=== PATIENT | female | born 1935 | race Caucasian/White ===

== ENCOUNTER → 2023-11-26 15:23 | Outpatient (REF) | payer MEDICARE, OTHER, SELFPAY ==
[2023-11-26 16:10] LABS: % Eosinophils 2.8 % (0-6); % Immature Granulocytes 0.3 % (0-0.5); % Lymphocytes 31.5 % (20.5-51.1); % Monocytes 6.1 % (1.7-9.3); % Neutrophils 58.3 % (42.2-75.2); Absolute Basophils 0.1 10^3/uL (0-0.2); Absolute Eosinophils 0.3 10^3/uL (0-0.7); Absolute Lymphocytes 2.8 10^3/uL (1.2-3.4); Absolute Monocytes 0.5 10^3/uL (0.1-0.6); Absolute Neutrophils 5.2 10^3/uL (1.4-6.5); Hematocrit 33.6 % (37.0-47.0); Hemoglobin 11.2 g/dL (12.0-16.0); Mean Corp Hgb Conc. 33.3 g/dL (33.0-37.0); Mean Corpuscular Hgb 31.2 pg (27.0-31.0); Mean Corpuscular Volume 93.6 fL (81.0-99.0); Mean Platelet Volume 9.3 fL (7.4-10.4); Nucleated Red Blood Cells % 0 %; Platelet Count 281 10^3/uL (130-400); Red Blood Cell Count 3.59 10^6/uL (4.20-5.40); Red Cell Dist. Width 13.9 % (11.5-14.5); White Blood Cell Count 8.9 10^3/uL (4.8-10.8)
[2023-11-26 16:35] LABS: ALT (SGPT) 25 U/L (0-35); AST (SGOT) 26 U/L (14-36); Albumin 3.8 g/dl (3.5-5.0); Alkaline Phosphatase 78 U/L (38-126); Blood Urea Nitrogen 28 mg/dl (7-17); Calcium 9.8 mg/dl (8.4-10.2); Carbon Dioxide 27 mmol/L (22-30); Chloride 98 mmol/L (98-107); Glucose 127 mg/dl (70-99); Magnesium 2.1 mg/dl (1.6-2.3); Potassium 4.7 mmol/L (3.5-5.1); Sodium 136 mmol/L (135-145); Total Bilirubin 0.4 mg/dl (0.2-1.3); Total Protein 6.5 g/dl (6.3-8.2); eGFR 23.73
== END ==
LOC: REG 15:23
PROVIDERS: ATTENDING PHYSICIAN Nurse Practitioner; FAMILY PHYSICIAN Family Medicine
DX: I48.0 Paroxysmal atrial fibrillation (principal); R42 Dizziness and giddiness; I10 Essential (primary) hypertension
CPT/HCPCS: 36415; 80053; 83735; 85025

== ENCOUNTER → 2023-12-02 10:30 | Outpatient (REF) | payer MEDICARE, OTHER, SELFPAY ==
[2023-12-02 11:22] LABS: Blood Urea Nitrogen 18 mg/dl (7-17); Carbon Dioxide 29 mmol/L (22-30); Chloride 98 mmol/L (98-107); Glucose 108 mg/dl (70-99); Potassium 4.5 mmol/L (3.5-5.1); Sodium 137 mmol/L (135-145); eGFR 43.81
== END ==
LOC: REG 10:30
PROVIDERS: ATTENDING PHYSICIAN Internal Medicine Cardiovascular Disease; FAMILY PHYSICIAN Family Medicine
DX: I10 Essential (primary) hypertension (principal); N28.9 Disorder of kidney and ureter, unspecified
CPT/HCPCS: 36415; 80048

== ENCOUNTER → 2024-01-27 12:54 | Outpatient (REF) | payer MEDICARE, OTHER, SELFPAY | LOC: EMG 12:54 | PROVIDERS: ATTENDING PHYSICIAN Psychiatry & Neurology Neurology; FAMILY PHYSICIAN Family Medicine | DX: M54.17 Radiculopathy, lumbosacral region (principal); R20.0 Anesthesia of skin | CPT/HCPCS: 95886; 95911 ==

== ENCOUNTER → 2024-02-05 13:48 | Outpatient (REF) | payer MEDICARE, OTHER, SELFPAY | LOC: MRI 3T 13:48 | PROVIDERS: ATTENDING PHYSICIAN Psychiatry & Neurology Neurology; FAMILY PHYSICIAN Family Medicine | DX: M54.2 Cervicalgia (principal); M54.12 Radiculopathy, cervical region | CPT/HCPCS: 72141 ==

== ENCOUNTER → 2024-02-18 13:23 | Outpatient (REF) | payer MEDICARE, OTHER, SELFPAY ==
[2024-02-18 15:07] LABS: ALT (SGPT) 18 U/L (0-35); AST (SGOT) 25 U/L (14-36); Albumin 4.3 g/dl (3.5-5.0); Alkaline Phosphatase 80 U/L (38-126); Direct Bilirubin 0.3 mg/dl (0.0-0.4); Total Bilirubin 0.3 mg/dl (0.2-1.3)
[2024-02-18 15:36] LABS: TSH Reflex To Free T4 3.42 uIU/ml (0.47-4.68)
== END ==
LOC: REG 13:23
PROVIDERS: ATTENDING PHYSICIAN Internal Medicine Cardiovascular Disease; FAMILY PHYSICIAN Family Medicine
DX: I48.0 Paroxysmal atrial fibrillation (principal); E78.2 Mixed hyperlipidemia; I10 Essential (primary) hypertension; N17.9 Acute kidney failure, unspecified; Z79.899 Other long term (current) drug therapy
CPT/HCPCS: 36415; 80076; 84443

== ENCOUNTER → 2024-02-29 10:02 | Outpatient (REF) | payer MEDICARE, OTHER, SELFPAY | LOC: WDC 10:02 | PROVIDERS: ATTENDING PHYSICIAN Nurse Practitioner Adult Health; FAMILY PHYSICIAN Family Medicine | DX: N63.10 Unspecified lump in the right breast, unspecified quadrant (principal); N63.14 Unspecified lump in the right breast, lower inner quadrant | CPT/HCPCS: 76642; 77061; 77065 ==

== ENCOUNTER → 2024-03-15 15:20 | Outpatient (REF) | payer MEDICARE, OTHER, SELFPAY ==
[2024-03-15 16:55] LABS: Erythrocyte Sed Rate 22 mm/hour (0-20)
[2024-03-15 17:06] LABS: ALT (SGPT) 20 U/L (0-35); AST (SGOT) 25 U/L (14-36); Albumin 4.3 g/dl (3.5-5.0); Alkaline Phosphatase 81 U/L (38-126); Direct Bilirubin 0.3 mg/dl (0.0-0.4); Total Bilirubin 0.4 mg/dl (0.2-1.3); Total Protein 7.1 g/dl (6.3-8.2)
[2024-03-15 17:08] LABS: C-Reactive Protein < 5.00 mg/L (0.0-10.00)
[2024-03-15 17:24] LABS: Vitamin D, 25-OH*** 57.7 ng/mL (30-80)
[2024-03-15 17:40] LABS: IgA 214 mg/dl (70-400)
[2024-03-15 17:58] LABS: Hepatitis B Surface Antibody Negative; Hepatitis C Antibody Negative (Negative)
[2024-03-15 18:03] LABS: Hepatitis A Antibody, Total Positive (Negative)
[2024-03-15 18:13] LABS: Folate 15.5 ng/ml (2.76-20); Vitamin B12 > 1000 pg/ml (239-931)
[2024-03-16 09:36] LABS: Glycohemoglobin (HgbA1c) 5.6 % (4.0-5.6)
[2024-03-16 14:41] LABS: tTG IgA Antibody 4.4 EU/ml (0-19)
[2024-03-17 14:54] LABS: Rheumatoid Agglutinin Less Than 10 IU (<10 IU)
[2024-03-17 18:28] LABS: HLA-B27 Negative (Negative)
[2024-03-17 20:56] LABS: ANA, IgG Reflex to HEp-2 None Detected (None Detected)
[2024-03-18 00:20] LABS: Endomysial IgA Antibody Titer <1:10 (<1:10)
[2024-03-18 01:24] LABS: Homocysteine 9 umol/L (0-15)
== END ==
LOC: REG 15:20
PROVIDERS: ATTENDING PHYSICIAN Psychiatry & Neurology Neurology; FAMILY PHYSICIAN Family Medicine
DX: M93.1 Kienbock's disease of adults (principal); E13.42 Other specified diabetes mellitus with diabetic polyneuropathy; D51.0 Vitamin B12 deficiency anemia due to intrinsic factor deficiency; M45.0 Ankylosing spondylitis of multiple sites in spine; E72.11 Homocystinuria; D52.9 Folate deficiency anemia, unspecified; R94.6 Abnormal results of thyroid function studies; Z20.828 Contact with and (suspected) exposure to other viral communicable diseases; R79.82 Elevated C-reactive protein (CRP); R70.0 Elevated erythrocyte sedimentation rate; E55.9 Vitamin D deficiency, unspecified
CPT/HCPCS: 36415; 80076; 82306; 82607; 82746; 82784; 83036; 83090; 83516; 83921; 84443; 85652; 86038; 86140; 86231; 86235; 86430; 86618; 86706; 86708; 86803; 86812

== ENCOUNTER → 2024-05-11 16:57 | Outpatient (REF) | payer MEDICARE, OTHER, SELFPAY ==
[2024-05-11 17:17] LABS: Urine Albumin Negative (Neg - Trace); Urine Bilirubin Negative (Negative); Urine Character Clear (Clear); Urine Color Amber; Urine Glucose Negative (Negative); Urine Ketone Negative (Negative); Urine Leukocyte Negative (Negative); Urine Nitrite Negative (Negative); Urine Occult Blood Negative (Negative); Urine Specific Gravity 1.005 (<1.030); Urine Urobilinogen Negative (Neg - 1+)
== END ==
LOC: CLAB 16:57
PROVIDERS: ATTENDING PHYSICIAN Urology
DX: N39.0 Urinary tract infection, site not specified (principal)
CPT/HCPCS: 81003; 87086

== ENCOUNTER → 2024-06-02 16:35 | Outpatient (REF) | payer MEDICARE, OTHER, SELFPAY ==
[2024-06-02 17:56] LABS: Urine Albumin Trace (Neg - Trace); Urine Bilirubin Negative (Negative); Urine Character Clear (Clear); Urine Color Yellow; Urine Glucose Negative (Negative); Urine Ketone Negative (Negative); Urine Leukocyte 1+ (Negative); Urine Nitrite Negative (Negative); Urine Occult Blood 1+ (Negative); Urine Specific Gravity 1.015 (<1.030); Urine Urobilinogen Negative (Neg - 1+)
[2024-06-02 18:14] LABS: Urine Squamous Cell 26-30 /LPF (Few)
[2024-06-02 18:15] LABS: Urine Bacteria Moderate (Negative); Urine Mucus Moderate; Urine White Cell 16-20 /HPF (0-5)
== END ==
LOC: CLAB 16:35
PROVIDERS: ATTENDING PHYSICIAN Urology
DX: N39.0 Urinary tract infection, site not specified (principal)
CPT/HCPCS: 81003; 81015; 87086

== ENCOUNTER → 2024-09-01 14:33 | Outpatient (REF) | payer MEDICARE, OTHER, SELFPAY ==
[2024-09-01 16:40] LABS: Urine Albumin Trace (Neg - Trace); Urine Bilirubin Negative (Negative); Urine Character Clear (Clear); Urine Color Yellow; Urine Glucose Negative (Negative); Urine Ketone Negative (Negative); Urine Leukocyte 2+ (Negative); Urine Nitrite Negative (Negative); Urine Occult Blood 1+ (Negative); Urine Urobilinogen Negative (Neg - 1+)
[2024-09-01 16:50] LABS: Urine Squamous Cell 0-2 /LPF (Few)
[2024-09-01 16:51] LABS: Urine Bacteria Few (Negative); Urine White Cell 90-100 /HPF (0-5)
== END ==
LOC: REG 14:33
PROVIDERS: ATTENDING PHYSICIAN Obstetrics & Gynecology Female Pelvic Medicine and Reconstructive Surgery; FAMILY PHYSICIAN Family Medicine
DX: N39.0 Urinary tract infection, site not specified (principal)
CPT/HCPCS: 81003; 81015; 87077; 87086; 87186

== ENCOUNTER → 2024-09-14 13:01 | Outpatient (REF) | payer MEDICARE, OTHER, SELFPAY ==
[2024-09-14 13:43] LABS: % Basophils 1.1 % (0-2); % Eosinophils 2.3 % (0-6); % Immature Granulocytes 0.3 % (0-0.5); % Lymphocytes 21.4 % (20.5-51.1); % Monocytes 6.5 % (1.7-9.3); % Neutrophils 68.4 % (42.2-75.2); Absolute Basophils 0.1 10^3/uL (0-0.2); Absolute Eosinophils 0.2 10^3/uL (0-0.7); Absolute Lymphocytes 1.4 10^3/uL (1.2-3.4); Absolute Monocytes 0.4 10^3/uL (0.1-0.6); Absolute Neutrophils 4.5 10^3/uL (1.4-6.5); Hematocrit 36.7 % (37.0-47.0); Hemoglobin 12.1 g/dL (12.0-16.0); Mean Corpuscular Hgb 31.3 pg (27.0-31.0); Mean Corpuscular Volume 95.1 fL (81.0-99.0); Mean Platelet Volume 9.3 fL (7.4-10.4); Nucleated Red Blood Cells % 0 %; Platelet Count 206 10^3/uL (130-400); Red Blood Cell Count 3.86 10^6/uL (4.20-5.40); Red Cell Dist. Width 13.2 % (11.5-14.5); White Blood Cell Count 6.6 10^3/uL (4.8-10.8)
[2024-09-14 16:05] LABS: Blood Urea Nitrogen 19 mg/dl (7-17); Calcium 9.2 mg/dl (8.4-10.2); Carbon Dioxide 29 mmol/L (22-30); Chloride 101 mmol/L (98-107); Glucose 121 mg/dl (70-99); Potassium 4.5 mmol/L (3.5-5.1); Sodium 141 mmol/L (135-145); eGFR 39.55
== END ==
LOC: REG 13:01
PROVIDERS: ATTENDING PHYSICIAN Obstetrics & Gynecology Female Pelvic Medicine and Reconstructive Surgery; FAMILY PHYSICIAN Family Medicine
DX: N99.3 Prolapse of vaginal vault after hysterectomy (principal); Z01.812 Encounter for preprocedural laboratory examination; C34.10 Malignant neoplasm of upper lobe, unspecified bronchus or lung
CPT/HCPCS: 36415; 80048; 85025

== ENCOUNTER → 2024-12-06 12:59 | Outpatient (REF) | payer MEDICARE, OTHER, SELFPAY | LOC: HWRCS 12:59 | PROVIDERS: ATTENDING PHYSICIAN Internal Medicine Cardiovascular Disease; FAMILY PHYSICIAN Family Medicine | DX: I10 Essential (primary) hypertension (principal); R42 Dizziness and giddiness; R01.1 Cardiac murmur, unspecified | CPT/HCPCS: 93306 ==

== ENCOUNTER → 2024-12-25 10:06 | Outpatient (REF) | payer MEDICARE, OTHER, SELFPAY | LOC: MRI 3T 10:06 | PROVIDERS: ATTENDING PHYSICIAN Psychiatry & Neurology Neurology | DX: M54.16 Radiculopathy, lumbar region (principal) | CPT/HCPCS: 72148 ==

== ENCOUNTER → 2025-05-25 13:17 | Outpatient (REF) | payer MEDICARE, OTHER, SELFPAY | LOC: HWWDC 13:17 | PROVIDERS: ATTENDING PHYSICIAN Family Medicine | DX: Z12.31 Encounter for screening mammogram for malignant neoplasm of breast (principal); Z13.820 Encounter for screening for osteoporosis; Z78.0 Asymptomatic menopausal state | CPT/HCPCS: 77080 ==

== ENCOUNTER 2025-10-02 14:19 | Emergency (ER) | payer MEDICARE, OTHER, SELFPAY ==
[2025-10-02 14:31] VITALS: BP 153/98
--- NOTE | 2025-10-02 15:56 | ED.GENMED ---
History of Present Illness
General
Chief Complaint: Fall
Source: patient
Exam Limitations: none
Time Seen by Provider: 10/02/25 15:40
Nursing documentation reviewed up to this point in time: agreed with
History of Present Illness
History of Present Illness:
Patient is an 89 yr old female presents to the ER for evaluation after fall. Patient reports around 1 PM she was reaching for a package in her front step and fell forward. She hit her right face and her right knee and ankle. She denies any loss
of consciousness. She has a mild headache now. She denies any new neck pain. She has chronic neck pain. She complains of soreness in her right knee. she denies any nausea or vomiting. unsure of her last tetanus staus.
Past History
Past History
ED Past Medical History: Cancer (Lung CA), GERD, HTN, Hypercholesterolemia and Other ( restless leg syndrome, diverticulosis, diverticulitis, stomach ulcers, back pain, IBS, )
ED Past Surgical History: Cholecystectomy, Gynecological (Hysterectomy), Orthopedic (Knee surgery, back surgery, and foot surgery. right Rotator cuff) and Other (Left upper lobe lobectomy)
Social History
Tobacco: Non-smoker
Alcohol: None
Drug: None
Personal:
Living: with family
Employment: Retired
Family History
Family History: Hypertension
Phy Exam
General Physical Exam
General Presentation: no apparent distress
General age: appears stated age
General Skin: warm and dry
General Habitus: normal
General Hydration: appears well hydrated
ENT Exam
ENT Exam: EOMI
Eye Exam
Eye Exam: PERRL, EOMI and other (+ Ecchymosis to right orbital region no step-off partial-thickness laceration + above right lateral eyebrow)
Eye Exam General: PERRL: bilateral and EOM intact: bilateral
Pupil Exam: Bilateral: round and reactive
Neurological Exam
Neurological Exam: alert and oriented x3
Musculoskeletal Exam
Musculoskeletal Exam: other ( no bony c spine tenderness mild ecchymosis to right anterior knee ; full ROM to hip/knee ankle )
Skin Exam
Skin Exam: normal color and warm/dry
Psychiatric Exam
Psychiatric Exam: normal mood/affect
Course
Orders/Labs/Results
Orders:
Orders
10/02/25 14:36
Ankle, Right 3 view CR [CR Ankle - Right Min 3 Views *] Urgent
Comment:
Reason For Exam: pain, injury, swelling
Knee, Right 4 or More Views [CR Knee- Right 4 Or More View*] Urgent
Comment:
Reason For Exam: pain, injury, swelling
10/02/25 14:37
CT Head W/o Iv Contrast Urgent
Comment:
Reason For Exam: fall, on thinner
Forearm, Right 2 View [CR Forearm - Right 2 View] Urgent
Comment:
Reason For Exam: pain, injury
Hip, Left 2-3 Views [CR Hip - LT w/wo Pel 2-3 Vw*] Urgent
Comment:
Reason For Exam: pain
Include a pelvis x-ray?: Yes
Vital Signs
Initial and Last Documented VS:
Initial Vital Signs
Temp Pulse Resp BP Pulse Ox
98.0 F 73 16 153/98 99
10/02/25 14:31 10/02/25 14:31 10/02/25 14:31 10/02/25 14:31 10/02/25 14:31
Last Documented Vital Signs
Temp Pulse Resp BP Pulse Ox
98.0 F 73 16 153/98 99
10/02/25 14:31 10/02/25 14:31 10/02/25 14:31 10/02/25 14:31 10/02/25 14:31
Procedures
Laceration Closure
Right Lateral Head:
Status of Wound: clean
Size of Wound in cm: 1
Description of Wound Edges: sharp
Preparation: cleaned with saline
Revision/Debridement: irrigate-direct pressure
Type of Closure: Dermabond-skin glue
MDM/Problems Addressed
Differential Diagnosis Includes:
Not limited to hip knee ankle fracture versus contusion, head injury, laceration
MDM/Problems Addressed:
Patient describes mechanical fall no loss of consciousness. On Eliquis. mild headache. Patient presents with a small laceration to forehead repaired as documented.. X-rays are negative. She is well appearing in no distress. head injury
instructions wound care reviewed.
Chronic conditions affecting care:
afib on eliquis
*Radiology
Radiology exam reviewed: radiology read reviewed
*Pulse Oximetry
SaO2: 99
Oxygen Mode of Delivery: Room air
Patient hypoxic: no
ED Attending Note
-
Portions of this chart may have been created with voice recognition software.� Occasional wrong word or��sound alike� substitutions may have occurred due to the inherent limitations of voice recognition software.
Discharge Plan
Departure
Patient Disposition: Home (Routine Discharge)
Date of Disposition: 10/02/25
Time of Disposition: 16:12
Patient with high blood pressure during this ER visit?: Yes
Condition: Fair
Covid-19: Not Applicable
Discharge Problem:
Head injury, Contusion, Laceration
Instructions: Laceration Repair With Glue (DC), Head Injury in Adults (DC), Contusion (DC), BLOOD PRESSURE
Prescriptions:
No Action
omeprazole magnesium [Prilosec OTC] 20 MG tablet,delayed release (DR/EC)
20 mg PO DAILY PRN (Reason: stomach discomfort)
Patient Comments:
Daily 16:00
polyethylene glycol 3350 [Miralax] 17 gram Powder In Packet
17 g PO DAILY PRN (Reason: constipation)
cyanocobalamin (vitamin B-12) 1,000 mcg Tablet
1,000 mcg PO DAILY PRN (Reason: supplement)
acetaminophen [Tylenol Extra Strength] 500 mg Tablet
1,000 mg PO BIDPRN PRN (Reason: mild pain)
docusate sodium [Stool Softener] 100 mg Capsule
100 mg PO DAILY PRN (Reason: constipation)
cholecalciferol (vitamin D3) 25 mcg (1,000 unit) Tablet
50 mcg PO DAILY PRN (Reason: supplement)
amiodarone [Pacerone] 200 mg Tablet
200 mg PO BID Qty: 60 0RF
ropinirole 2 mg Tablet
2 mg PO Daily Qty: 30 0RF
metoprolol tartrate 25 mg Tablet
25 mg PO TID Qty: 60 0RF
valsartan 160 mg tablet
160 mg PO DAILY Qty: 30 0RF
aspirin 81 mg Tablet,Delayed Release (Dr/Ec)
81 mg PO DAILY Qty: 0 0RF
temazepam 15 MG capsule
1 cap PO HS Qty: 0 0RF
Patient Comments:
10/30/2023, patient filled this medication on 10/28/2023 for 90 capsules according to PDMP.
gabapentin 300 mg Capsule
300 mg PO HS Qty: 0 0RF
gabapentin 100 mg Capsule
200 mg PO DAILY Qty: 0 0RF
Patient Comments:
10/30/2023, patient's spouse states that patient takes this medication with their Tramadol every morning.
sertraline 50 MG tablet
50 mg PO DAILY Qty: 0 0RF
tramadol 200 mg Tablet Extended Release 24 Hr
200 mg PO DAILY Qty: 0 0RF
Patient Comments:
10/30/2023, patient's spouse states that patient takes this medication with their Gabapentin in the morning. Patient filled this medication on 10/04/2023 for 30 tablets according to PDMP.
Eliquis 2.5 mg Tablet
2.5 mg PO BID Qty: 0 0RF
Referrals:
Carlito Garg MD [Family Provider, Family Practice]
Activity Restrictions/Additional Instructions:
Keep wound clean and dry for 24 hours after 24 hours You may lightly wet. do not apply antibiotic to the area. Glue will flake off on its own within 5 to 7 days. You may take Tylenol for pain. Return if any worsening of symptoms ,including
headache, dizziness, nausea, vomiting , difficulty walking or any further concerns.
Interventions
Interventions:
*Risk Screen - Suicide Last Done: 10/02/25 14:21
Discharge Date and Time
Print Language: [id number]
[2025-10-02] MEDS: TYLENOL 650 MG PO (16:13)
[2025-10-02] MEDS: ADACEL 0.5 ML IM (16:14)
== END 2025-10-02 16:30 | disposition home or self-care (01) ==
LOC: EMR 14:19
PROVIDERS: EMERGENCY PHYSICIAN Emergency Medicine; FAMILY PHYSICIAN Family Medicine
DX: S09.90XA Unspecified injury of head, initial encounter (principal); S01.111A Laceration without foreign body of right eyelid and periocular area, initial encounter; W01.10XA Fall on same level from slipping, tripping and stumbling with subsequent striking against unspecified object, initial encounter; Z23 Encounter for immunization; K21.9 Gastro-esophageal reflux disease without esophagitis; I10 Essential (primary) hypertension; E78.00 Pure hypercholesterolemia, unspecified; G25.81 Restless legs syndrome; I48.91 Unspecified atrial fibrillation; K58.9 Irritable bowel syndrome, unspecified; Z79.01 Long term (current) use of anticoagulants; Z82.49 Family history of ischemic heart disease and other diseases of the circulatory system; Z85.118 Personal history of other malignant neoplasm of bronchus and lung; Z87.11 Personal history of peptic ulcer disease; Z90.49 Acquired absence of other specified parts of digestive tract; Z90.710 Acquired absence of both cervix and uterus
CPT/HCPCS: 99284; 12011; 90471; 70450; 73090; 73502; 73564; 73610; 90715